=== PATIENT | male | born 1960 | race Caucasian/White ===

== ENCOUNTER → 2020-12-14 | Outpatient (CLI) | payer MEDICARE, OTHER ==
[~2020-12-14] MED LIST: ALBU.083IS IH; AMLO10 PO; CYCL10 PO; ERGO50000 PO; FOLI1 PO; IBUHYD PO; LOSHYD100 PO; METTREX2.5 PO; [UNRECOGNIZED DRUG - OTHER] PO
== END | disposition home or self-care (01) ==
LOC: LAB 12:13 → LAB SHORT 12:13
DX: L57.0 Actinic keratosis (principal)
CPT/HCPCS: 88305

== ENCOUNTER → 2023-02-01 | Outpatient (CLI) | payer MEDICARE, OTHER ==
[2023-02-01 20:47] LABS: Creatinine, Urine Random 33.4 mg/dL (27.00-270.00); Microalb/Creat Ratio UR, Rand 19.431 mg/g (0.000-30.000); Microalbumin, Random Urine 6.49 mg/L (0.000-20.000)
== END ==
LOC: LAB SHORT 12:00 → LAB 12:00
PROVIDERS: Physician Assistant
DX: E11.9 Type 2 diabetes mellitus without complications (principal)
CPT/HCPCS: 82043; 82570

== ENCOUNTER 2025-01-25 22:52 | Emergency (ER) | payer MEDICARE, OTHER ==
[~2025-01-25] VITALS: Ht 177.8 cm; Wt 217.7 kg
[2025-01-25] MEDS ORDERED: Ipratropium/Albuterol SulF 2.5-0.5MG/3 ML Amp INH ONE (23:05)
[2025-01-25] MEDS ORDERED: Metoprolol Tartrate 1 MG/ML 5 ML VIAL IV ONE (23:05)
[2025-01-25 23:12] LABS: BASOPHILS ABSOLUTE AUTO 0.02 K/mm3 (0.00-0.23); BASOPHILS PERCENT AUTO 0 % (0-2); EOSINOPHILS ABSOLUTE AUTO 0.00 K/mm3 (0.00-0.68); EOSINOPHILS PERCENT AUTO 0 % (0-6); Hematocrit 46.4 % (37.0-53.0); Hemoglobin 14.9 g/dL (13.5-17.5); IMMATURE GRAN ABSOLUTE AUTO 0.11 K/mm3 (0.00-0.10); IMMATURE GRAN PERCENT AUTO 1 % (0-1); LYMPHOCYTES ABSOLUTE AUTO 0.32 K/mm3 (0.84-5.20); LYMPHOCYTES PERCENT AUTO 2 % (21-46); MONOCYTES ABSOLUTE AUTO 1.42 K/mm3 (0.16-1.47); MONOCYTES PERCENT AUTO 7 % (4-13); Mean Corpuscular HGB Conc 32.1 g/dL (31.5-36.5); Mean Corpuscular Volume 89 fL (80-100); NEUTROPHILS ABSOLUTE AUTO 17.69 K/mm3 (1.96-9.15); NEUTROPHILS PERCENT AUTO 90 % (41-73); NRBC ABSOLUTE 0.00 K/mm3 (0.00-0.02); NRBC Auto 0.0 /100 WBC (0.0-0.2); Platelet Count 196 K/mm3 (150-400); RDW Coefficient Variation 15.1 % (11.7-14.2); RDW Standard Deviation 49.1 fL (35.1-46.3)
[2025-01-25 23:20] LABS: pH Blood Venous 7.43 (7.34-7.37)
[2025-01-25 23:26] LABS: Prothrombin Time Results 14.7 Sec (9.7-11.5)
[2025-01-25 23:35] LABS: Alanine Aminotransfer (ALT/SGP 32 U/L (12-78); Albumin, Blood 3.2 g/dL (3.4-5.0); Albumin/Globulin Ratio 0.7 (0.8-1.8); Anion Gap 12 mmol/L (3-11); Aspartate Aminotrans (AST/SGOT 51 U/L (12-37); Bilirubin, Total 2.3 mg/dL (0.1-1.0); Blood Urea Nitrogen 26 mg/dL (8-24); CO2, Blood 26 mmol/L (21-32); Calcium, Blood 8.6 mg/dL (8.5-10.1); Chloride, Blood 97 mmol/L (98-108); Creatinine, Blood 1.26 mg/dL (0.60-1.20); Ethanol (Alcohol), Blood, Med <3 mg/dL; Globulin, Blood 4.8 g/dL (2.2-4.0); Glucose, Blood 205 mg/dL (70-99); Potassium, Blood 3.6 mmol/L (3.5-5.5); Sodium, Blood 131 mmol/L (136-145); Total Protein, Blood 8.0 g/dL (6.4-8.2)
[2025-01-26 01:45] VITALS: BP 123/81
[2025-01-26] MEDS ORDERED: Furosemide 10 MG / ML 2ML Vial IV ONE (02:05)
== END 2025-01-26 03:44 | disposition short-term general hospital (02) ==
LOC: ER 22:52
PROVIDERS: Student in an Organized Health Care Education/Training Program
DX: J96.01 Acute respiratory failure with hypoxia (principal); I48.91 Unspecified atrial fibrillation; E87.1 Hypo-osmolality and hyponatremia; E80.6 Other disorders of bilirubin metabolism; I21.4 Non-ST elevation (NSTEMI) myocardial infarction; J44.89 Other specified chronic obstructive pulmonary disease; I10 Essential (primary) hypertension; G43.909 Migraine, unspecified, not intractable, without status migrainosus; Z79.899 Other long term (current) drug therapy; Z88.6 Allergy status to analgesic agent; Z88.8 Allergy status to other drugs, medicaments and biological substances
CPT/HCPCS: 71045; 72170; 73562-LT; 80053; 80320; 82803; 83690; 83880; 84484; 85025; 85610; 90471; 90715; 93005; 93010; 94640; 94660; 94664; 96374; 96375; 99285-25; J1938; J2919

== ENCOUNTER → 2025-02-07 | Outpatient (CLI) | payer MEDICARE, OTHER ==
[2025-02-07 19:25] LABS: Creatinine, Urine Random 39.6 mg/dL (27.00-270.00); Microalb/Creat Ratio UR, Rand 40.909 mg/g (0.000-30.000); Microalbumin, Random Urine 16.2 mg/L (0.000-20.000)
== END ==
LOC: LAB SHORT 15:29 → LAB 15:29
PROVIDERS: Family Medicine
DX: E11.69 Type 2 diabetes mellitus with other specified complication (principal); E11.59 Type 2 diabetes mellitus with other circulatory complications; E11.65 Type 2 diabetes mellitus with hyperglycemia; N39.0 Urinary tract infection, site not specified
CPT/HCPCS: 82043; 82570; 87086

== ENCOUNTER → 2025-03-31 | Outpatient (CLI) | payer MEDICARE, OTHER ==
[~2025-03-31] MED LIST changes: +ALBU90OI INH; +APAP500 MG PO; +ATOR40TA PO; +Cefpodoxime Pr100 MG PO; +FURO40 PO; +LOSA50 PO; +METF500 PO; +METFORMIN HCL500 MG PO; +METO100 PO; +POTA10T PO; +POTCHL20ER PO; +Prevacid Soluta30 MG PO; +SPIR50 PO; +TREMFYA100 MG/11 SC; +WARF4 PO; +WARF5 PO
== END | disposition home or self-care (01) ==
LOC: LAB 16:45 → LAB SHORT 16:45 → LAB FUT 03-28 12:20
DX: N39.0 Urinary tract infection, site not specified (principal)
CPT/HCPCS: 87077; 87086; 87186

== ENCOUNTER → 2025-04-21 | Outpatient (CLI) | payer MEDICARE, OTHER | LOC: LAB SHORT 17:32 → LAB 17:32 | DX: N39.0 Urinary tract infection, site not specified (principal) | CPT/HCPCS: 87077; 87086; 87186 ==

== ENCOUNTER → 2025-05-21 | Outpatient (CLI) | payer MEDICARE, OTHER | LOC: LAB SHORT 17:34 → LAB 17:34 | DX: N30.00 Acute cystitis without hematuria (principal) | CPT/HCPCS: 87086 ==